=== PATIENT | female | born 1980 | race African-American/Black ===

== ENCOUNTER 2023-08-09 19:42 | Emergency (ER) | payer OTHER ==
[2023-08-09] MEDS ORDERED: Famotidine 20 MG TAB ONE (20:46)
[2023-08-09] MEDS ORDERED: methylPREDNISolone Sod Succ/PF 125 MG/2 ML VIAL ONE (20:46)
== END 2023-08-09 21:50 | disposition home or self-care (01) ==
LOC: MADERS 19:42
DX: T78.40XA Allergy, unspecified, initial encounter (principal); H11.31 Conjunctival hemorrhage, right eye; F17.210 Nicotine dependence, cigarettes, uncomplicated
CPT/HCPCS: 96372; 99284; J2930